=== PATIENT | male | born 1960 | race Native Hawaiian/Other Pacific Islander ===

== ENCOUNTER 2022-03-24 15:03 | Outpatient (CLI) | payer OTHER | END 2022-03-24 19:16 | disposition home or self-care (01) | LOC: LAB 15:03 | PROVIDERS: ATTEND Nurse Practitioner Family | DX: K21.9 Gastro-esophageal reflux disease without esophagitis (principal); K59.00 Constipation, unspecified; R76.8 Other specified abnormal immunological findings in serum; F10.20 Alcohol dependence, uncomplicated; F60.2 Antisocial personality disorder; F20.89 Other schizophrenia; F14.20 Cocaine dependence, uncomplicated; F13.20 Sedative, hypnotic or anxiolytic dependence, uncomplicated; F15.20 Other stimulant dependence, uncomplicated; B18.2 Chronic viral hepatitis C; K02.9 Dental caries, unspecified; I10 Essential (primary) hypertension | CPT/HCPCS: 82550; 82553; 84484 ==

== ENCOUNTER 2022-03-25 09:49 | Emergency (ER) | payer OTHER ==
[~2022-03-25] VITALS: Ht 165.1 cm; Wt 81.6 kg
[2022-03-25 09:50] VITALS: TEMP 98
[2022-03-25 10:03] LABS: PLATELET COUNT 245 K/uL (142-355)
[2022-03-25 10:18] LABS: POTASSIUM 5.4 mmol/L (3.6-5.2)
[2022-03-25 12:38] VITALS: BP 148/80
== END 2022-03-25 12:45 ==
LOC: ED 09:49
PROVIDERS: Emergency Medicine
DX: R07.89 Other chest pain (principal); I10 Essential (primary) hypertension; E87.5 Hyperkalemia; F17.210 Nicotine dependence, cigarettes, uncomplicated
CPT/HCPCS: 80053; 84484; 85027; 85379; 93005; 99283; J0360; Q9963